=== PATIENT | female | born 1970 | race Caucasian/White ===

== ENCOUNTER 2017-04-02 10:01 | Emergency (ER) | payer MEDICAID ==
[2017-04-02 10:08] VITALS: RESP 18; O2SAT 94
[2017-04-02] MEDS ORDERED: NS 1,000 ML IV ONE (10:33)
[2017-04-02] MEDS ORDERED: ALBUTEROL 3 ML DEYVIAL IH ONE (10:34)
[2017-04-02] MEDS: BENZONATATE 100 MG CAP PO ONE ×2 (10:37→10:45)
[2017-04-02 10:50] LABS: PLATELET COUNT 354 10^3/uL (150-400)
[2017-04-02] MEDS ORDERED: predniSONE 20 MG TAB PO ONE (11:12)
[2017-04-02] MEDS ORDERED: AZITHROMYCIN 250 MG TAB PO ONE (11:12)
--- NOTE | 2017-04-02 11:26 | EDPHY ---
H & P Time Seen by Provider: 04/02/17 10:09 HPI/ROS: This patient complains of frequent coughing including paroxysms of cough and which she then gasps for air afterwards. The paroxysms also have been causing gagging and vomiting. Her symptoms started a week ago and 2 days ago she was seen by a partner of her primary care physician's who provided a albuterol neb prescription for the patient as the patient already had a nebulizer machine from history of what sounds like reactive airway disease. She describes getting wheezing when she gets viral illnesses in the past. She has been having some shortness of breath despite the albuterol on fact thinks that she overdosed on albuterol last name using every 1 hr for 4-6 times in a row and got very jittery with a fast heart and vomited. She has had no neb since that time. She is accompanied by her boyfriend who drove her here by private vehicle for evaluation. ROS: No high fevers or chills. She reports some fatigue that she attributes to decreased sleep from frequent coughing. HEENT: She reports a 2/10 sore throat. She has some associated odynophagia but still tolerating p.o. Intake. Pulmonary: No pleuritic pain. She has a productive cough of white sputum. No hemoptysis. Cardiovascular: She reports some lightheadedness this morning when she is upright. She thinks that she is dehydrated. No chest pain. GI: No abdominal pain. No nausea. She simply reports that her frequent coughing is triggering a gag which then triggers vomiting. : No symptoms Integumentary: No rash 10 point ROS is otherwise negative. Past Medical/Surgical History: Last dpt was 8 years ago Social History: The patient is typically seen in [facility] in [facility] Quit smoking 7 years ago has a 15 pack year smoking history prior to that Occasional marijuana. No other drug use Rare alcohol. Smoking Status: Former smoker Physical Exam: Physical Exam Vital signs are except for tachycardia and hypertension General: No acute distress HEENT: Nose: Clear discharge bilaterally. No sinus tenderness to percussion. Ears: External canals and tympanic membranes are clear with no erythema or abnormal findings bilaterally. Oropharynx: No erythema or exudates. No dysphonia. No drooling or stridor. She has dry mucous membranes. Eyes: Pupils equal and react to light. Extraocular motions are intact. Neck: Supple with no meningismus. No lymphadenopathy Lungs: Bilateral expiratory wheeze and rhonchi. No rales. No respiratory distress. Cardiac: Regular rate and rhythm with no murmur gallop or rub Skin: No rash or pallor. Neuro: Alert with no focal deficits noted. Initial differential diagnosis: URI with cough, pertussis, bronchitis, reactive airway disease, vomiting with dehydration, metabolic disarray Constitutional: Initial Vital Signs Temperature (C) 36.9 C 04/02/17 10:05 Heart Rate 114 H 04/02/17 10:05 Respiratory Rate 18 04/02/17 10:05 Blood Pressure 165/104 H 04/02/17 10:05 O2 Sat (%) 94 04/02/17 10:05 O2 Delivery Mode Room Air Allergies/Adverse Reactions: dye in pills Allergy (Uncoded 04/02/17 10:05) pt reports itching Home Medications: Medication Instructions Recorded Albuterol 04/02/17 Albuterol Hfa Anes Only [Proair 2 puffs IH Q4 PRN #1 mdi 04/02/17 Hfa Icu (*)] Azithromycin [Zithromax] 250 mg PO DAILY #4 tab 04/02/17 Losartan Potassium 04/02/17 Proair Hfa 04/02/17 predniSONE 60 mg PO DAILY #14 tab 04/02/17 MDM/Departure - MDM Medications Given: Discontinued Medications Albuterol (Proventil Neb) 3 ml IH EDNOW ONE Stop: 04/02/17 10:35 Last Admin: 04/02/17 10:38 Dose: 3 ml Albuterol (Proventil Neb) 3 ml IH EDNOW ONE Stop: 04/02/17 11:27 Last Admin: 04/02/17 11:43 Dose: Not Given Azithromycin (Zithromax) 500 mg PO EDNOW ONE PRN Reason: Protocol Stop: 04/02/17 11:13 Last Admin: 04/02/17 11:34 Dose: 500 mg Benzonatate (Tessalon Pearles) 200 mg PO EDNOW ONE Stop: 04/02/17 10:35 Last Admin: 04/02/17 10:45 Dose: Not Given Sodium Chloride (Ns) 1,000 mls @ 0 mls/hr IV EDNOW ONE; Wide Open PRN Reason: Protocol Stop: 04/02/17 10:34 Last Admin: 04/02/17 10:44 Dose: 1,000 mls Prednisone (Prednisone) 60 mg PO EDNOW ONE Stop: 04/02/17 11:13 Last Admin: 04/02/17 11:34 Dose: 60 mg ED Course/Re-evaluation: IV normal saline bolus Albuterol neb with decreased cough frequency increased aeration and decreased wheeze on exam. Patient felt some subjective improvement with this. She is also treated with prednisone 60 mg p.o. And Zithromax 500 mg p.o.. Patient reported a gagging on inhaled "pill dust" from the prednisone when a 2nd albuterol neb was started that triggered vomiting episode. Though with the nurse looked in the waste basket she only saw some mucus. It is not entirely clear if the patient had full emesis or just coughed up a lot of mucus. She is treated then with 80 mg of Solu-Medrol IV cover potential loss of prednisone from emesis. Review of labs reveals a normal CBC with exception of mild increase in eosinophils. Basic metabolic panel is essentially normal exception of creatinine of 1.1 consistent with her clinical diagnosis of dehydration from vomiting. Pertussis swab is sent and pending After the patient another albuterol neb but she declined. Counseled patient regarding bronchitis or reactive airway disease. Answered all her questions prior to discharge home. - Depart Disposition: Home, Routine, Self-Care Clinical Impression: Acute bronchitis Qualifiers: Bronchitis organism: unspecified organism Qualified Code(s): J20.9 - Acute bronchitis, unspecified Vomiting Qualifiers: Vomiting type: unspecified Vomiting Intractability: non-intractable Nausea presence: without nausea Qualified Code(s): R11.11 - Vomiting without nausea Reactive airway disease Qualifiers: Asthma severity: moderate Asthma persistence: persistent Asthma complication type: with acute exacerbation Qualified Code(s): J45.41 - Moderate persistent asthma with (acute) exacerbation Condition: Good Instructions: Acute Bronchitis (ED), Acute Nausea and Vomiting (ED) Additional Instructions: Diagnosis: 1. Acute bronchitis 2. Vomiting 3. Reactive airway disease Plan: Albuterol inhaler or nebulizer-use every 4-6 hours as needed for cough, wheeze or shortness of breath Prednisone as prescribed in addition Zithromax in addition as prescribed Follow up with primary care physician for any ongoing symptoms despite treatment plan Return for any significant worsening despite treatment plan. Stand Alone Forms: Work Excuse Prescriptions: Albuterol Hfa Anes Only [Proair Hfa Icu (*)] 2 puffs IH Q4 PRN #1 mdi PRN Reason: Wheezing Azithromycin [Zithromax] 250 mg PO DAILY #4 tab predniSONE 60 mg PO DAILY #14 tab Referrals: ANISA MILLS [Other] - As per Instructions
[2017-04-02] MEDS: ALBUTEROL 3 ML DEYVIAL IH ONE ×2 (11:34→11:43)
[2017-04-02 11:47] VITALS: PULSE 104
[2017-04-02] MEDS ORDERED: methylPREDNISolone SOD SUCC 40 MG/ML VIAL IVP ONE (11:51)
[2017-04-02 12:01] VITALS: BP 151/98; TEMP 98.2
[2017-04-05 05:26] LABS: B.PARAPERTUSSIS PCR Negative; B.PERTUSSIS PCR Negative
== END 2017-04-02 12:07 | disposition home or self-care (01) ==
LOC: CED 10:01
DX: J20.9 Acute bronchitis, unspecified (principal); J45.41 Moderate persistent asthma with (acute) exacerbation; R11.11 Vomiting without nausea; E86.9 Volume depletion, unspecified
CPT/HCPCS: 80048-PO; 85025-PO; 87798-90; 96374; J2920; J7512; J7613

== ENCOUNTER 2017-05-04 16:30 | Emergency (ER) | payer MEDICAID ==
[2017-05-04 16:37] VITALS: BP 151/95; PULSE 92; RESP 18; O2SAT 97
[2017-05-04 16:41] VITALS: TEMP 99.1
--- NOTE | 2017-05-04 17:10 | EDPHY ---
H & P Time Seen by Provider: 05/04/17 16:42 HPI/ROS: This patient complains of ear pressure and achy pain that worsens with changes and elevation to her right ear. She also reports feeling diminished hearing. The duration of the symptoms have been over the past 5 days with gradual worsening in intensity current moderate intensity pain. She reports associated nasal congestion that she attributes to seasonal allergies in a deviated septum. She also reports reactive airway symptoms that have improved on the Symbicort samples received from her primary care physician but is running low on that requests replacement might be covered by Medicaid. She also uses albuterol occasionally. Currently she has no active wheezing or shortness of breath. ROS: Constitutional: No fevers or chills. HEENT as per HPI. No sore throat. No sinus pain. Pulmonary: Cough that was associated with recent bronchitis has resolved. No wheezing or shortness of breath currently. Neuro: No generalized headache. No other focal symptoms. 5 point ROS is otherwise negative. Smoking Status: Former smoker Physical Exam: Physical Exam Vital signs are normal. General: No acute distress HEENT: Nose: Clear discharge bilaterally. No sinus tenderness to percussion. Ears: Right external canals clear. Right TM reveals a clear effusion. No erythema. Left external canal and TM are normal. Oropharynx: No erythema or exudates. No dysphonia. No drooling or stridor. Eyes: Pupils equal and react to light. Extraocular motions are intact. Neck: Supple with no meningismus. No lymphadenopathy Lungs: Clear to auscultation bilaterally with no rales, rhonchi or wheeze. No respiratory distress. Cardiac: Regular rate and rhythm with no murmur gallop or rub Skin: No rash or pallor. Neuro: Alert with no focal deficits noted. Initial differential diagnosis: Seasonal allergies, viral URI, serous otitis, mild intermittent reactive airway disease without current exacerbation. Constitutional: Initial Vital Signs Heart Rate 92 05/04/17 16:33 Respiratory Rate 18 05/04/17 16:33 Blood Pressure 151/95 H 05/04/17 16:33 O2 Sat (%) 97 05/04/17 16:33 O2 Delivery Mode Room Air Allergies/Adverse Reactions: dye in pills Allergy (Uncoded 04/02/17 10:05) pt reports itching Home Medications: Medication Instructions Recorded Losartan Potassium 04/02/17 Fluticasone Hfa 220 Mcg [Flovent 2 puffs IH DAILY #1 mdi 05/04/17 220 MCG Hfa MDI (*)] Ibuprofen [Motrin (*)] 600 mg PO Q6 PRN #30 tab 05/04/17 Symbicort 160-4.5 Mcg Inh (*) 05/04/17 MDM/Departure - [facility] ED Course/Re-evaluation: This patient has serous otitis causing her symptoms. I counseled regarding this. She is already using antihistamine and Flonase steroid nasal spray. Encouraged her to at guaifenesin and ibuprofen as well as a humidifier. Provided Flovent steroid inhaler script to use once her some more runs out. Encouraged her to continue using her albuterol if needed for wheezing or shortness of breath episodes. She will follow up with primary care physician for any ongoing symptoms understands need to return to the emergency department for any significant worsening despite the treatment plan. I answered all her questions prior to discharge home. - Depart Disposition: Home, Routine, Self-Care Clinical Impression: Serous otitis media Qualifiers: Chronicity: acute Laterality: right Recurrence: not specified as recurrent Qualified Code(s): H65.01 - Acute serous otitis media, right ear Reactive airway disease Qualifiers: Asthma severity: mild Asthma persistence: intermittent Asthma complication type : uncomplicated Qualified Code(s): J45.20 - Mild intermittent asthma, uncomplicated Seasonal allergies Qualifiers: Allergic rhinitis trigger: unspecified Qualified Code(s): J30.2 - Other seasonal allergic rhinitis Condition: Good Instructions: Reactive Airways Disease (ED), Serous Otitis Media (ED) Additional Instructions: Diagnoses: 1. Serous otitis 2. Reactive airway disease 3. Seasonal allergies Plan: Humidifier Continue Flonase Continue an antihistamine-Benadryl aura nonsedating antihistamine such as loratadine [id number] Guaifenesin mucolytic Ibuprofen top diminish ear swelling and pain Consider Flovent as a replacement inhaled steroid for the Symbicort if Medicaid covers that. Continue the albuterol inhaler if needed for wheeze or shortness of breath. Follow up primary care physician for any ongoing symptoms Return for any significant worsening despite treatment plan. Prescriptions: Fluticasone Hfa 220 Mcg [Flovent 220 MCG Hfa MDI (*)] 2 puffs IH DAILY #1 mdi Ibuprofen [Motrin (*)] 600 mg PO Q6 PRN #30 tab PRN Reason: Pain Referrals: NONE *PRIMARY CARE P,. [Primary Care Provider] - As per Instructions
== END 2017-05-04 17:19 | disposition home or self-care (01) ==
LOC: CED 16:30
DX: J45.20 Mild intermittent asthma, uncomplicated (principal); J30.2 Other seasonal allergic rhinitis; H65.01 Acute serous otitis media, right ear; Z87.891 Personal history of nicotine dependence

== ENCOUNTER 2018-01-02 16:24 | Emergency (ER) | payer SELFPAY ==
[2018-01-02] MEDS ORDERED: predniSONE 20 MG TAB PO ONE (16:43)
[2018-01-02] MEDS: valACYclovir 500 MG TAB PO ONE ×2 (16:49→17:15)
--- NOTE | 2018-01-02 16:52 | EDPHY ---
H & P Time Seen by Provider: 01/02/18 16:31 HPI/ROS: HPI Facial drooping. 47-year-old female by private vehicle with her son. This patient reports that 2 -3 days ago, she noticed the right side of her face drooping. She states that she initially noticed her mouth drooping on the right side but then noticed that her right eye was harder shut and her right forehead and eyebrow were drooping as well. This was more pronounced today at 1:00 p.m. Today. She reports that it has persisted but states that it is somewhat less pronounced than it was at 1:00 p.m.. No associated signs or symptoms. She denies any loss of sensation or weakness in her extremities. No headache. No other complaints. ROS: Constitutional: No fever, no chills. As above. Eyes: No discharge. No changes in vision. ENT: No sore throat. No nasal congestion or rhinorrhea. Respiratory: No cough. No shortness of breath. Cardiac: No chest pain, no palpitations. Gastrointestinal: No abdominal pain, no vomiting, no diarrhea. Genitourinary: No hematuria. No dysuria or increased frequency with urination. Musculoskeletal: No back pain. No neck pain. No myalgias or arthralgias. Skin: No rashes. Neurological: No headache. No focal weakness or altered sensation. As above. Past medical history: Hypertension, sinus surgery, Lasix, tubal ligation, orthopedic surgery right arm. Social history: Former smoker. No alcohol. Here with her son. Physical Exam: General Appearance: Alert, no distress. This patient is responding to questions appropriately and in full sentences. This patient appears well- hydrated and well-nourished. Eyes: Pupils equal and round and reactive to light at 3-2 mm bilaterally. She has some mild injection of the right upper and lower lid on the medial aspect. Left eye is normal. ENT, Mouth: Mucous membranes are moist. The pharyngeal tissues are unremarkable. No edema or swelling. No asymmetry suggestive of abscess. No erythema or exudates. Respiratory: There are no retractions, lungs are clear to auscultation with good air movement bilaterally. Cardiovascular: Regular rate and rhythm. No murmur. Neurological: Motor sensory function is intact except for a right-sided upper and lower facial droop. Cranial nerves are normal except noted. Gait is normal. Cerebellar function including [id number] and [id number] is intact. Skin: Warm and dry, no rashes. Musculoskeletal: Neck is supple and nontender. No pain on flexion of the neck. Extremities are symmetrical. All joints range without pain or impingement. Psychiatric: No agitation. No depression. Database: EKG: Imaging: Procedures: Emergency department course: Triage vital signs reviewed. She is mildly hypertensive. Vital signs are otherwise normal. 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 I discussed this diagnosis with her and the treatment for her condition. She is able to close her right eye without significant difficulty. I discussed eyedrop lubrication. And patching her eye shut at night. She was given acyclovir and 60 mg of prednisone in the emergency department. She will be prescribed these medications on discharge. She has a follow-up appointment tomorrow with her primary care physician. I also discussed the importance of neurology follow-up. She feels comfortable going home. She will fill her prescriptions on the way home. She understands the importance of follow-up. Return to emergency department precautions were thoroughly reviewed with her. All of her questions were answered. She was discharged in good condition. Differential Diagnosis: The differential diagnosis on this patient includes but is not limited to Green' s palsy. CVA unlikely. This represents a partial list of diagnoses considered. These considerations are based on history, physical exam, past history, reassessment and diagnostic testing. Smoking Status: Former smoker Constitutional: Initial Vital Signs Temperature (C) 36.8 C 01/02/18 16:27 Heart Rate 84 01/02/18 16:27 Respiratory Rate 16 01/02/18 16:27 Blood Pressure 159/102 H 01/02/18 16:27 O2 Sat (%) 98 01/02/18 16:27 O2 Delivery Mode Room Air Allergies/Adverse Reactions: dye in pills Allergy (Uncoded 01/02/18 16:27) pt reports itching Home Medications: Medication Instructions Recorded Acyclovir 800 mg PO 5XD #35 tab 01/02/18 Losartan Potassium 01/02/18 Symbicort 160-4.5 Mcg Inh (*) 01/02/18 predniSONE [prednisone 20mg (RX)] 60 mg PO DAILY #9 tab 01/02/18 Medical Decision Making - Data Points Medications Given: Discontinued Medications Acyclovir (Acyclovir) 800 mg PO EDNOW ONE Stop: 01/02/18 16:59 Last Admin: 01/02/18 17:06 Dose: 800 mg Prednisone (Prednisone) 60 mg PO EDNOW ONE Stop: 01/02/18 16:44 Last Admin: 01/02/18 16:48 Dose: 60 mg Valacyclovir HCl (Valtrex) 1,000 mg PO EDNOW ONE Stop: 01/02/18 16:44 Last Admin: 01/02/18 17:15 Dose: Not Given Departure - Departure Disposition: Home, Routine, Self-Care Clinical Impression: Green's palsy Condition: Good Instructions: Green Palsy (ED) Additional Instructions: Read and follow provided instructions. Follow-up with your primary care physician tomorrow as scheduled for re- evaluation. However, it is also important that you follow up with a neurologist for re-evaluation within the next 2-3 days. I have provided you with referral information for our staff neurologist. Take medication as prescribed through entire course of treatment. Ask pharmacist for artificial tears for eye lubrication on your right side and a patch for your right eye to use at night to keep it closed. Return to the emergency department for worsening symptoms, difficulty speaking, any loss of sensation or weakness in her extremities, changes in vision or other serious concerns. Referrals: Abdon Trejo MD [Medical Doctor] - As per Instructions Prescriptions: Acyclovir 800 mg PO 5XD #35 tab predniSONE [prednisone 20mg (RX)] 60 mg PO DAILY #9 tab
[2018-01-02] MEDS ORDERED: ACYCLOVIR 400 MG TAB PO ONE (16:58)
[2018-01-02 17:19] VITALS: BP 130/98
== END 2018-01-02 17:06 | disposition home or self-care (01) ==
LOC: CED 16:24
DX: G51.0 Bell's palsy (principal); I10 Essential (primary) hypertension
CPT/HCPCS: J7512